=== PATIENT | male | born 1960 | race Caucasian/White ===

== ENCOUNTER → 2020-07-13 | Outpatient (CLI) | payer OTHER ==
--- NOTE | 2020-07-13 12:57 | CTL ---
EXAMINATION TYPE: CT Low Dose Lung DATE OF EXAM ORDERED: 07/13/2020 HISTORY: Personal history of tobacco use. Lung cancer screening CT DLP: 135.[address] CTDI: 4.0 mGy Automated exposure control for dose reduction was used. SCREENING VISIT: Yes COMPARISON: None TECHNIQUE: Low dose computed tomography scan was performed through the chest at 1 mm thick sections a nd reconstructed images in the coronal plane at [address] DIAGNOSTIC QUALITY: Satisfactory FINDINGS: LUNG NODULES: Present, detailed below: Left upper lobe solid 4 mm pulmonary nodule (4:109). Right upper lobe solid 3 mm pulmonary nodule (4:103). A few additional areas of branching vasculature versus small 2 mm pulmonary nodule are seen within th e within the right upper lobe (10:39, 4:85) and right middle lobe (10:24, 4:186). LUNGS: COPD: Severity: Mild Fibrosis: Severity: None Lymph nodes: None Other findings: Minimal bronchiectasis RIGHT PLEURAL SPACE: Effusion: None Calcification: None Thickening: None Pneumothorax: None LEFT PLEURAL SPACE: Effusion: None Calcification: None Thickening: None Pneumothorax: None HEART: Heart Size: Normal Coronary calcification: Mild Pericardial effusion: None OTHER FINDINGS: Upper abdomen: None Bony thorax: Degenerative changes of the spine Supraclavicular region: None Other: None IMPRESSION: Few solid pulmonary nodules measuring up to [address] CHEST RECOMMENDATION: Annual low-dose lung CT screening CT LUNG RAD: Lung-Rad 2 Benign Appearance or Behavior
== END | disposition home or self-care (01) ==
LOC: RADCTMAIN 06:51
PROVIDERS: ATTEND Family Medicine
DX: Z12.2 Encounter for screening for malignant neoplasm of respiratory organs (principal); R91.8 Other nonspecific abnormal finding of lung field; F17.210 Nicotine dependence, cigarettes, uncomplicated

== ENCOUNTER 2021-03-24 23:41 | Emergency (ER) | payer OTHER ==
[2021-03-24 23:46] VITALS: BP 131/84; RESP 18; TEMP 97.9
[2021-03-25] MEDS ORDERED: LIDOCAINE 1% INJ 10MG/ML (20 ML MDV) SQ ONE (00:41)
[2021-03-25] MEDS ORDERED: DIPH,PERTUS(ACELL)TETVAC-LF 0.5 ML VIAL IM ONE (01:30)
--- NOTE | 2021-03-25 01:44 | ED ---
Skin/Abscess/FB HPI - General Chief complaint: Skin/Abscess/Foreign Body Stated complaint: fishhook in thumb Time Seen by Provider: 03/25/21 00:41 Source: patient Mode of arrival: ambulatory Limitations: no limitations - History of Present Illness Initial comments: 60-year-old male patient presents to the emergency department today for evaluation of fish hook to the right thumb. Patient states he injured himself at around 11 PM. Denies use of anticoagulants or antiplatelet medications. States he is having some pain to the thumb. He is unsure when his last tetanus vaccine was given. Denies any other injuries or concerns. - Related Data Allergies Allergy/AdvReac Type Severity Reaction Status Date / Time No Known Allergies Allergy Verified 03/24/21 23:44 Review of Systems ROS Statement: Those systems with pertinent positive or pertinent negative responses have been documented in the HPI. ROS Other: All systems not noted in ROS Statement are negative. Past Medical History Past Medical History: No Reported History History of Any Multi-Drug Resistant Organisms: None Reported Past Surgical History: Appendectomy Past Psychological History: No Psychological Hx Reported Smoking Status: Current every day smoker Past Alcohol Use History: Rare Past Drug Use History: Marijuana General Exam Limitations: no limitations General appearance: alert, in no apparent distress Respiratory exam: Present: normal lung sounds bilaterally. Absent: respiratory distress, wheezes, rales, rhonchi, stridor Cardiovascular Exam: Present: regular rate, normal rhythm, normal heart sounds. Absent: systolic murmur, diastolic murmur, rubs, gallop, clicks Extremities exam: Present: full ROM, normal capillary refill, other (There is a fishhook foreign body noted to the pad of the right thumb. No active bleeding. Given his otherwise pink, warm, dry. Cap refill less than 3 seconds.). Absent: normal inspection, tenderness, pedal edema, joint swelling, calf tenderness Neurological exam: Present: alert, oriented X3, CN II-XII intact Psychiatric exam: Present: normal affect, normal mood Skin exam: Present: warm, dry, intact, normal color. Absent: rash Course Vital Signs 03/24/21 03/25/21 23:44 02:00 Temperature 97.9 F Pulse Rate 95 79 Respiratory 18 18 Rate Blood Pressure 131/84 O2 Sat by Pulse 96 98 Oximetry Procedures - Forgein Body Removal Soft Tissue Consent Obtained: verbal consent Site: hand (Right thumb) Anesthetic Used: lidocaine 1% Amount (mLs): 2 Foreign Body Suspected: Fish Hook Foreign Body Removed: yes Foreign Body Removal Technique: Instrumentation Patient Tolerated Procedure: well, no complications Medical Decision Making - Medical Decision Making 60-year-old male patient presented to the emergency department today for evaluation of fish hook foreign body noted to the right thumb. Neurovascular status was intact. Was able to remove the foreign body. Wound was cleansed. He is educated regarding signs or symptoms of infection. I did give a handwritten prescription in case he develops any signs of infection. He is instructed to follow-up with his primary care physician for recheck in 1-2 days. Return parameters were discussed in detail. He verbalizes understanding and agrees with this plan. My attending is Dr. Devlin. Disposition Clinical Impression: Fish hook injury of right thumb Disposition: HOME SELF-CARE Condition: Good Instructions (If sedation given, give patient instructions): Soft Tissue Foreign Body (ED) Additional Instructions: Keep wound clean and dry. Cleanse twice daily for moderate antibacterial soap. Monitor for signs or symptoms of infection including but not limited to redness, swelling, drainage of pus, fever, or chills. Return for any new, worsening, or concerning symptoms. Is patient prescribed a controlled substance at d/c from ED?: No Referrals: Ellen Jeffery MD [Primary Care Provider] - 1-2 days Time of Disposition: 01:44
[2021-03-25 02:01] VITALS: PULSE 79
== END 2021-03-25 02:02 | disposition home or self-care (01) ==
LOC: EC 23:41
DX: S69.91XA Unspecified injury of right wrist, hand and finger(s), initial encounter (principal); F17.200 Nicotine dependence, unspecified, uncomplicated; Z23 Encounter for immunization; W45.8XXA Other foreign body or object entering through skin, initial encounter; Y92.89 Other specified places as the place of occurrence of the external cause
CPT/HCPCS: 99283; 90471; 90715; J2001

== ENCOUNTER → 2022-03-01 | Outpatient (CLI) | payer OTHER ==
--- NOTE | 2022-03-02 09:14 | CA ---
Transthoracic Echo Report Name: Milton Samuel Age: 61 Gender: M : 1960 Exam Date: 03/01/2022 16:01 Exam Location: [facility] Ht (in): 70 Wt (lb): 262 Ordering Physician: Ellen Jeffery MD Attending/Referring Phys: [employer] Fixer Elo Goodwin RDCS Procedure CPT: Indications: R06.00 Dyspnea Cardiac Hx: Technical Quality: Fair Contrast 1: Total Dose (mL): Contrast 2: Total Dose (mL): MEASUREMENTS (Male / Female) Normal Values 2D ECHO LV Diastolic Diameter PLAX 5.2 cm 4.2 - 5.9 / 3.9 - 5.3 cm LV Systolic Diameter PLAX 3.3 cm IVS Diastolic Thickness 1.4 cm 0.6 - 1.0 / 0.6 - 0.9 cm LVPW Diastolic Thickness 1.4 cm 0.6 - 1.0 / 0.6 - 0.9 cm LV Relative Wall Thickness 0.5 RV Internal Dim ED PLAX 3.4 cm LVOT Diameter 2.6 cm LA Systolic Diameter LX 3.3 cm 3.0 - 4.0 / 2.7 - 3.8 cm LA Volume 62.2 cm??? 18 - 58 / 22 - 52 cm??? M-MODE Aortic Root Diameter MM 4.2 cm MV E Point Septal Separation 0.4 cm AV Cusp Separation MM 2.1 cm DOPPLER AV Peak Velocity 234.9 cm/s AV Peak Gradient 22.1 mmHg AV Mean Velocity 155.4 cm/s AV Mean Gradient 11.2 mmHg AV Velocity Time Integral 43.6 cm LVOT Peak Velocity 109.7 cm/s LVOT Peak Gradient 4.8 mmHg AV Area Cont Eq pk 2.6 cm??? MV Area PHT 2.9 cm??? Mitral E Point Velocity 72.3 cm/s Mitral A Point Velocity 87.4 cm/s Mitral E to A Ratio 0.8 MV Deceleration Time 262.1 ms MV E' Velocity 5.6 cm/s Mitral E to MV E' Ratio 13.0 TR Peak Velocity 223.3 cm/s TR Peak Gradient 19.9 mmHg Right Ventricular Systolic Press 24.9 mmHg FINDINGS Left Ventricle Left ventricular ejection fraction is estimated at 60-65 %. Left ventricular cavity size normal. Moderate concentric left ventricular hypertrophy. Right Ventricle Mild right ventricular dilatation. Right ventricular systolic pressure within normal limits. Right Atrium Normal right atrial size. Left Atrium Mildly increased left atrial volume. Mildly increased left atrial area. No evidence for an atrial septal defect. Mitral Valve Trace mitral regurgitation. Structurally normal mitral valve. No mitral stenosis or prolapse. Aortic Valve Possible bicuspid aortic valve, moderate AOV sclerosis, mild aortic stenosis with a peak gradient of 22 mmHg and a mean gradient of 11 mmHg. Tricuspid Valve Trace to mild tricuspid regurgitation. Pulmonic Valve Trace pulmonic regurgitation. Pericardium Normal pericardium. Aorta Moderate aortic dilatation at the level of the sinuses of valsalva 42 mm CONCLUSIONS #1. Normal left ventricle size with preserved LV function and moderate concentric hypertrophy. #2. Mild left atrial enlargement. #3. Aortic valve is not well visualized. There is moderate sclerosis and possibility of bicuspid valve cannot be excluded. There is mild stenosis Previewed by: Dr. Linda Thomas MD (Electronically Signed) Final Date: 02 March 2022 09:13
== END | disposition home or self-care (01) ==
LOC: RADECHMAIN 15:57
PROVIDERS: ATTEND Family Medicine
DX: I08.1 Rheumatic disorders of both mitral and tricuspid valves (principal)
CPT/HCPCS: 93306

== ENCOUNTER → 2022-07-18 | Outpatient (CLI) | payer OTHER ==
--- NOTE | 2022-07-18 10:23 | XR ---
EXAMINATION TYPE: XR chest 2V DATE OF EXAM: 07/18/2022 COMPARISON: CT chest 07/13/2020 HISTORY: Preop for hip surgery TECHNIQUE: Frontal and lateral views of the chest are obtained. FINDINGS: There is no focal air space opacity, pleural effusion, or pneumothorax seen. Prominent luis ng volumes are consistent with patient's underlying COPD. Previously described lung nodules are not s een on plain film. Aorta is dense. The cardiac silhouette size is within normal limits. The osseous structures are intact, there is thoracic spondylosis, eventration of right hemidiaphragm. IMPRESSION: No acute cardiopulmonary process.
[2022-07-18 14:33] LABS: INR 0.99 (0.90-1.11); Prothrombin Time 10.9 sec (9.9-11.9)
[2022-07-18 14:58] LABS: Basophils # (A) 0.05 X 10*3/uL (0.00-0.10); Basophils % (A) 0.7 %; Eosinophils # (A) 0.26 X 10*3/uL (0.04-0.35); Eosinophils % (A) 3.9 %; HCT 42.8 % (39.6-50.0); HGB 14.3 g/dL (13.0-17.0); Immature Grans, Automated 0.6 %; Lymphocytes # (A) 1.66 X 10*3/uL (0.90-5.00); Lymphocytes % (A) 24.7 %; MCH 29.4 pg (27.0-32.0); MCHC 33.4 g/dL (32.0-37.0); MCV 87.9 fL (80.0-97.0); Mean Platelet Volume 10.1 fL (9.5-12.2); Monocytes # (A) 0.61 X 10*3/uL (0.20-1.00); Monocytes % (A) 9.1 %; NRBC Per 100 WBC 0 /100 WBCS (0.0-0.0); Platelet Count 226 X 10*3/uL (140-440); RBC 4.87 X 10*6/uL (4.40-5.60); RDW 14.4 % (11.5-14.5); WBC 6.72 X 10*3/uL (4.50-10.00)
[2022-07-18 15:11] LABS: Appearance,Urine Clear (Clear); Bilirubin,Urine Negative (Negative); Blood,Urine Negative (Negative); Color,Urine Yellow (Yellow); Ketones,Urine Negative (Negative); Nitrite,Urine Negative (Negative); PH, Urine 7.5 (5.0-8.0); Specific Gravity,Urine 1.008 (1.001-1.030); Urobilinogen,Urine 0.2 (0.2,1.0)
[2022-07-18 15:52] LABS: Bacteria,Urine None Seen /HPF (None Seen)
[2022-07-18 16:12] LABS: ALT 52 U/L (10-49); AST 27 U/L (14-35); African American GFR (CKD) 104.2 (60.0-200.0); Albumin 4.4 g/dL (3.8-4.9); Albumin/Globulin Ratio 1.83 (1.60-3.17); Alkaline Phosphatase 94 U/L (41-126); BUN/Creat Ratio 14.89 Ratio (12.00-20.00); Blood Urea Nitrogen 13.4 mg/dL (9.0-27.0); Calcium 9.9 mg/dL (8.7-10.3); Carbon Dioxide 25.7 mmol/L (20.0-27.5); Chloride 104 mmol/L (96-109); Globulin 2.4 g/dL (1.6-3.3); Glucose 99 mg/dL (70-110); Non-African American GFR(CKD) 89.9 (60.0-200.0); Potassium 4.8 mmol/L (3.5-5.5); Sodium 138 mmol/L (135-145); Total Protein 6.8 g/dL (6.2-8.2)
[2022-07-18 16:13] LABS: Chol/HDL Ratio 3.76 Ratio; LDL Cholesterol,Calculated 139.5 mg/dL (0.0-131.0); VLDL Calculation 11.02 mg/dL (5.00-40.00)
== END | disposition home or self-care (01) ==
LOC: LABWHC1 09:41
PROVIDERS: ATTEND Family Medicine
DX: Z01.818 Encounter for other preprocedural examination (principal); E78.2 Mixed hyperlipidemia; N40.0 Benign prostatic hyperplasia without lower urinary tract symptoms; M25.562 Pain in left knee; R73.9 Hyperglycemia, unspecified
CPT/HCPCS: 36415; 71046; 80053; 80061; 81001; 83036; 83880; 84153; 84550; 85025; 85610; 87070; 87086

== ENCOUNTER → 2022-07-21 | Outpatient (CLI) | payer OTHER ==
--- NOTE | 2022-07-22 07:15 | US ---
EXAMINATION TYPE: US scrotum with doppler. Grayscale and color Doppler Duplex imaging performed of t he scrotum. DATE OF EXAM: 07/21/2022 COMPARISON: NONE CLINICAL HISTORY: N49.2 INFLAMMATORY DISORDERS OF SCROTUM. left scrotal swelling x 1 year. Vasectomy 20+ years ago. EXAM MEASUREMENTS: TESTICLES: Right Testicle: 4.0 x 3.2 x 2.5 cm Left Testicle: 4.2 x 3.1 x 2.3 cm EPIDIDYMIS HEAD: Right Epididymis: 0.8 x 1.7 x 1.0 cm Left Epididymis: 1.1 x 1.3 x 0.7 cm Doppler performed to assess for testicular vascularity; good bilateral color flow and waveforms are s een. There is no evidence of testicular torsion. Presence of hydroceles: Small hydrocele in right scrotum Presence of varicoceles: Yes on left side measuring 4.4mm IMPRESSION: 1. Small right-sided hydrocele. 2. Left-sided varicocele.
== END | disposition home or self-care (01) ==
LOC: RADUSWWP 17:13
PROVIDERS: ATTEND Family Medicine
DX: N43.3 Hydrocele, unspecified (principal); I86.1 Scrotal varices
CPT/HCPCS: 76870; 93975

== ENCOUNTER → 2022-09-05 | Outpatient (CLI) | payer OTHER ==
--- NOTE | 2022-09-05 16:29 | US ---
EXAMINATION TYPE: US venous doppler duplex LE LT DATE OF EXAM: 09/05/2022 4:02 PM COMPARISON: NONE CLINICAL HISTORY: R60.9 edema. total hip 6 days ago, calf swelling SIDE PERFORMED: Left TECHNIQUE: The lower extremity deep venous system is examined utilizing real time linear array sonog vira with graded compression, doppler sonography and color-flow sonography. VESSELS IMAGED: Common Femoral Vein Deep Femoral Vein Greater Saphenous Vein * Femoral Vein Popliteal Vein Small Saphenous Vein * Proximal Calf Veins (* superficial vessels) Left Leg: Negative for DVT IMPRESSION: No evidence for DVT at this time.
== END | disposition home or self-care (01) ==
LOC: RADUSWWP 16:00
PROVIDERS: ATTEND Family Medicine
DX: R60.9 Edema, unspecified (principal)

== ENCOUNTER → 2023-09-15 | Outpatient (CLI) | payer MEDICARE, OTHER ==
--- NOTE | 2023-09-15 10:45 | CTL ---
EXAMINATION: SCREENING CT SCAN OF THE CHEST WITHOUT IV CONTRAST DATE OF EXAM: 09/15/2023 9:37 AM HISTORY: High risk for lung cancer. 33 pack-year history. Current smoker. COMPARISON: 07/13/2020. TECHNIQUE: CT examination of the chest was performed without IV contrast. Sagittal, coronal and MIP r eformatted images were provided. Low dose technique was used. CT dose lowering techniques were used, to include: automated exposure control, adjustment for patient size, and or use of iterative reconstr uction. FINDINGS: Nodules: There is a 4.7 mm right upper lobe nodule on series 4 image 108. This is unchanged. There is a 3 mm n odule in the right middle lobe on series 4 image 189. There is a calcified granuloma in the left lowe r lobe. There are no new or enlarging solid pulmonary nodules. Lungs: There is mild upper lobe predominant centrilobular emphysema. Mediastinum: Normal. Coronary artery calcification: There is mild coronary artery calcification in the left anterior desce nding. Aorta/Cardiac Chambers: Normal. Upper Abdomen: Normal. Chest Wall: Normal. Musculoskeletal: Normal. IMPRESSION: 1. Unchanged small pulmonary nodules. ACR LUNGRADS CATEGORY:LungRads 2 - BENIGN APPEARING OR BEHAVIOR . Nodules with a very low likelihood of becoming a clinically active cancer due to size or lack of g rowth. Probability of malignancy considered < 1%. 2. Mild emphysema. 3. Mild coronary artery calcification.
== END | disposition home or self-care (01) ==
LOC: RADCTMAIN 09:00
PROVIDERS: ATTEND Family Medicine
DX: Z12.2 Encounter for screening for malignant neoplasm of respiratory organs (principal); J43.2 Centrilobular emphysema; I25.10 Atherosclerotic heart disease of native coronary artery without angina pectoris; F17.210 Nicotine dependence, cigarettes, uncomplicated; R91.8 Other nonspecific abnormal finding of lung field
CPT/HCPCS: 71271

== ENCOUNTER → 2024-12-20 | Outpatient (CLI) | payer MEDICARE ==
--- NOTE | 2024-12-20 13:30 | CTL ---
EXAMINATION TYPE: CT Low Dose Lung DATE OF EXAM: 12/20/2024 1:24 PM COMPARISON: 09/15/2023. CLINICAL INDICATION: Male, 64 years old with history of Z12.2 ENCNTR SCREEN FO F17.210 NICOTINE DEPEN DENCE; current smoker 1 PPD x35 years, history of tobacco use. TECHNIQUE: Multiple axial non-contrast scans were obtained from approximately the lung apices through the upper abdomen. Coronal and sagittal reformatted images were obtained. Low dose technique was uti lized. MIP were created on a separate workstation and submitted for review. CT DLP: 141.3 mGycm, Automated exposure control for dose reduction was used. CT Contrast: Contrast used: None Oral contrast used: None FINDINGS: Lack of intravenous contrast and low dose technique limits the evaluation of the vascular and soft ti ssue structures. LUNGS: No evidence of pulmonary fibrosis. No evidence of focal consolidation, pneumothorax or pleural effusion. Centrilobular emphysema changes. Nodules: RUL: 4 mm series 5 image 23, stable. RML: None. RLL: None. SAY: None. LLL: None. AIRWAY: Patent and unremarkable. HEART: Size within normal limits. Mild coronary artery calcifications present. MEDIASTINUM: No gross evidence of adenopathy. VASCULATURE: No aortic aneurysm. MUSCULOSKELETAL: Mild disc degeneration changes are present throughout the thoracolumbar spine. SOFT TISSUES/LYMPH NODES: Unremarkable. LOWER NECK: No significant findings. UPPER ABDOMEN: No significant findings. IMPRESSION: 1. No clinically significant pulmonary nodules. 2. Mild emphysema. CT LUNG RAD AND CT CHEST RECOMMENDATION: Lung-Rad 2 Benign Appearance or Behavior: Continue annual sc reening with LDCT in 12 months. S Modifier (other clinically significant findings): None Recommend smoking cessation (if current smoker), or continuation of smoking cessation (if prior smoke r). Annual screening for lung cancer with low-dose computed tomography is recommended in adults ages 55 to 77 years who have a 30 pack-year smoking history and currently smoke or have quit within the pa st 15 years. Screening should be discontinued once a person has not smoked for 15 years or develops a health problem that substantially limits life expectancy or the ability or willingness to have [facility] lung surgery. Lung rads 2021 [email or web address] [email or web address], , 12/20/2024 1:28 PM
== END | disposition home or self-care (01) ==
LOC: RADCTMAIN 13:00
PROVIDERS: ATTEND Family Medicine
DX: Z12.2 Encounter for screening for malignant neoplasm of respiratory organs (principal); F17.210 Nicotine dependence, cigarettes, uncomplicated; J43.2 Centrilobular emphysema
CPT/HCPCS: 71271

== ENCOUNTER → 2025-03-29 | Outpatient (CLI) | payer MEDICARE ==
[2025-03-29 14:39] LABS: HCT 44.9 % (39.6-50.0); HGB 14.9 g/dL (13.0-17.0); MCH 30.3 pg (27.0-32.0); MCHC 33.2 g/dL (32.0-37.0); MCV 91.3 FL (80.0-97.0); RBC 4.92 X 10*6/uL (4.40-5.60); RDW 14.1 % (11.5-14.5); WBC 6.65 X 10*3/uL (4.50-10.00)
[2025-03-29 14:40] LABS: Basophils # (A) 0.06 X 10*3/uL (0.00-0.10); Basophils % (A) 0.9 %; Eosinophils # (A) 0.17 X 10*3/uL (0.04-0.35); Eosinophils % (A) 2.6 %; Immature Grans, Automated 0.30 %; Lymphocytes # (A) 1.79 X 10*3/uL (0.90-5.00); Lymphocytes % (A) 26.9 %; Monocytes # (A) 0.57 X 10*3/uL (0.20-1.00); Monocytes % (A) 8.6 %; NRBC Per 100 WBC 0 X 10*3/uL (0.00-0.01); Neutrophils # (A) 4.04 X 10*3/uL (1.80-7.70); Neutrophils % (A) 60.7 %; Platelet Count 201 X 10*3/uL (140-440)
[2025-03-29 15:14] LABS: ALT 25 U/L (10-49); AST 21 U/L (14-35); Albumin 4.2 g/dL (3.8-4.9); Albumin/Globulin Ratio 1.75 Ratio (1.60-3.17); Alkaline Phosphatase 91 U/L (41-126); Anion Gap 12.00 mmol/L (4.00-12.00); BUN/Creat Ratio 16.12 Ratio (12.00-20.00); Blood Urea Nitrogen 12.9 mg/dL (9.0-27.0); Calcium 9.6 mg/dL (8.7-10.3); Carbon Dioxide 24.0 mmol/L (21.6-31.8); Chloride 110 mmol/L (96-109); Cholesterol 143.00 mg/dL (0.00-200.00); Globulin 2.4 g/dL (1.6-3.3); Glucose 103 mg/dL (70-110); HDL Cholesterol 44.60 mg/dL (40.00-60.00); LDL Cholesterol,Calculated 88.8 mg/dL (0.0-131.0); Potassium 4.8 mmol/L (3.5-5.5); Prostate Specific Antigen 1.23 ng/mL (0.000-4.500); Sodium 146 mmol/L (135-145); T4, Free (Free Thyroxine) 1.07 ng/dL (0.80-1.80); Total Protein 6.6 g/dL (6.2-8.2); Triglycerides 48.00 mg/dL (0.00-149.00); VLDL Calculation 9.60 mg/dL (5.00-40.00); Vitamin B12 585.0 pg/mL (200.0-944.0)
== END | disposition home or self-care (01) ==
LOC: LABWHC1 08:01
PROVIDERS: ATTEND Family Medicine
DX: J45.909 Unspecified asthma, uncomplicated (principal); R60.9 Edema, unspecified; R73.9 Hyperglycemia, unspecified; E78.2 Mixed hyperlipidemia; N40.0 Benign prostatic hyperplasia without lower urinary tract symptoms; I25.84 Coronary atherosclerosis due to calcified coronary lesion; D51.9 Vitamin B12 deficiency anemia, unspecified; E55.9 Vitamin D deficiency, unspecified
CPT/HCPCS: 36415; 80053; 80061; 82306; 82607; 83036; 84153; 84439; 84443; 85025